=== PATIENT | female | born 1960 | race African-American/Black ===

== ENCOUNTER 2024-04-01 01:06 | Emergency (ER) | payer OTHER ==
[2024-04-01 01:12] VITALS: TEMP 97.9; BMI 25.0
[2024-04-01] MEDS ORDERED: METOCLOPRAMIDE HCL INJECTION 10 MG/2 ML VIAL ONE (02:20)
[2024-04-01] MEDS ORDERED: ACETAMINOPHEN INJECTION 100 ML ONE (02:21)
[2024-04-01 02:41] LABS: BASO % 0.4 % (0-2.0); EOS % 0.6 % (0-4.5); HEMATOCRIT 33.8 % (32.4-45.2); HEMOGLOBIN 11.3 GM/dL (10.7-15.3); LYMPH % 36.7 % (8-40); MCH 26.8 pg (25.7-33.7); MCHC 33.4 g/dl (32.0-36.0); MEAN CELL VOLUME 80.1 fl (80-96); MEAN PLT VOLUME 8.1 fl (7.5-11.1); MONO % 6.9 % (3.8-10.2); NEUT % 55.4 % (42.8-82.8); PLATELET COUNT 279 10^3/uL (134-434); RBC 4.22 M/mm3 (3.60-5.2); RDW 15.6 % (11.6-15.6)
[2024-04-01 02:54] LABS: INR 0.91 (0.83-1.09); PROTHROMBIN TIME (PATIENT) 10.5 SEC (9.7-13.0)
[2024-04-01 02:57] LABS: ACTIVATED PTT 29.3 SECONDS (25.2-36.5)
[2024-04-01 03:04] VITALS: BP 158/88; PULSE 78; RESP 18
[2024-04-01] MEDS: ACETAMINOPHEN 1000 MG/100 ML BAG IVPB ONE (03:17)
[2024-04-01 03:18] LABS: POTASSIUM 3.6 mmol/L (3.5-5.1)
[2024-04-01 03:20] LABS: CALCIUM 9.5 mg/dL (8.5-10.1)
[2024-04-01] MEDS ORDERED: ACETAMINOPHEN 325 MG TABLET (FP) ONE (03:20)
[2024-04-01 03:21] LABS: ALBUMIN 4.4 g/dl (3.4-5.0); BLOOD UREA NITROGEN 10.8 mg/dL (7-18); MAGNESIUM 1.8 mg/dL (1.8-2.4)
[2024-04-01 03:24] LABS: CREATININE 0.8 mg/dL (0.55-1.3)
[2024-04-01 03:25] LABS: BILIRUBIN,TOTAL 0.8 mg/dL (0.2-1)
[2024-04-01 03:26] LABS: TOT PROT 8.2 g/dl (6.4-8.2)
[2024-04-01] MEDS: ACETAMINOPHEN 500 MG TABLET (FP) PO ONE (03:27)
[2024-04-01] MEDS: METOCLOPRAMIDE HCL INJECTION 10 MG/2 ML VIAL IVPUSH ONE (03:39)
== END 2024-04-01 07:12 | disposition home or self-care (01) ==
LOC: JER 01:06
PROC: 3E033GC Introduction of Other Therapeutic Substance into Peripheral Vein, Percutaneous Approach (ICD-10-PCS; principal; 2024-04-01)
DX: R51.9 Headache, unspecified (principal); R11.2 Nausea with vomiting, unspecified
CPT/HCPCS: 36415; 70450-TC; 70496-TC; 80053; 83735; 84484; 85025; 85610; 85730; 86850; 86900; 86901; 93005; 93010; 99285-25; Q9967